=== PATIENT | male | born 1985 | race Caucasian/White ===

== ENCOUNTER 2018-03-27 18:52 | Emergency (ER) | payer MEDICAID ==
[2018-03-27 22:40] LABS: microscopic required? NO
[2018-03-27 23:07] LABS: UA SPECIFIC GRAVITY 1.025 (1.005-1.035); urine erythrocyte NEGATIVE (NEGATIVE)
[2018-03-28 00:36] VITALS: BP 127/83
== END 2018-03-28 00:36 | disposition home or self-care (01) ==
LOC: ED 18:52
PROVIDERS: Emergency Medicine
DX: R30.0 Dysuria (principal)

== ENCOUNTER 2019-08-15 14:52 | Emergency (ER) | payer MEDICAID ==
[~2019-08-15] VITALS: Ht 172.7 cm; Wt 97.5 kg
[2019-08-15 15:10] VITALS: Ht 172.7 cm; Wt 97.5 kg
[2019-08-15 18:12] VITALS: BP 140/80
== END 2019-08-15 18:12 | disposition home or self-care (01) ==
LOC: ED 14:52
DX: S43.401A Unspecified sprain of right shoulder joint, initial encounter (principal); X58.XXXA Exposure to other specified factors, initial encounter; Y93.89 Activity, other specified; Y92.89 Other specified places as the place of occurrence of the external cause; Y99.8 Other external cause status

== ENCOUNTER 2020-09-13 13:47 | Emergency (ER) | payer MEDICAID ==
[~2020-09-13] VITALS: Ht 172.7 cm; Wt 93.9 kg
[2020-09-13 14:02] VITALS: BP 140/89; Ht 172.7 cm; Wt 93.9 kg
== END 2020-09-13 15:10 | disposition home or self-care (01) ==
LOC: ED 13:47
DX: S05.02XA Injury of conjunctiva and corneal abrasion without foreign body, left eye, initial encounter (principal); E66.9 Obesity, unspecified; Z68.31 Body mass index [BMI] 31.0-31.9, adult; X58.XXXA Exposure to other specified factors, initial encounter; Y93.89 Activity, other specified; Y92.89 Other specified places as the place of occurrence of the external cause; Y99.8 Other external cause status
CPT/HCPCS: 90715